=== PATIENT | male | born 1975 | race Caucasian/White ===

== ENCOUNTER 2019-06-24 11:00 | Outpatient (CLI) | payer BC ==
[2019-06-24] MEDS: Testosterone Cypionate 200 MG/ML MDV IM SCH (11:20)
[2019-06-24 11:28] VITALS: BP 110/71; PULSE 87
== END 2019-06-24 11:36 | disposition home or self-care (01) ==
LOC: LB.ACU 11:00
PROVIDERS: ATTEND Family Medicine
DX: E29.1 Testicular hypofunction (principal)
CPT/HCPCS: 96372; J1071